=== PATIENT | female | born 1960 | race Caucasian/White ===

== ENCOUNTER 2018-09-18 22:29 | Emergency (ER) | payer BC, MEDICAID ==
[~2018-09-18] VITALS: Ht 152.4 cm; Wt 68.4 kg
[2018-09-18 22:33] VITALS: Ht 152.4 cm; Wt 68.4 kg
[2018-09-18] MEDS ORDERED: CEFEPIME 2GM/50 ML (PMX) 50 ML IVPB STA (22:38)
[2018-09-18] MEDS ORDERED: ACETAMINOPHEN 325 MG TAB PO STA (22:38)
[2018-09-18] MEDS ORDERED: KETOROLAC 30 MG INJ IV STA (22:38)
[2018-09-18] MEDS ORDERED: SODIUM CHLORIDE 0.9% 1L BAG IV* STA (22:38)
--- NOTE | 2018-09-18 22:53 | ERD ---
ER Documentation Chief Complaint Chief Complaint C/O LT JAW/THROAT PAIN AND SWELLING X1.5 WEEKS S/P DENTAL IMPLANT HPI 58-year-old female complaining of left sided neck pain anteriorly for the past 1.5 weeks status post having a dental implant placed. She recently finished a course of ampicillin. She has not discussed this pain with her primary dentist. However she came into the because for the past 3 days she has been experiencing some fevers as well as 5 days of left groin pain that is radiating to her left lower back. Denies any hematuria or dysuria. No nausea, vomiting, diarrhea ROS All systems reviewed and are negative except as per history of present illness. Medications Home Meds Active Scripts Amoxicillin/Potassium Clav (Amox-Clav 875-125 mg Tablet) 875-125 mg Tab, 1 TAB PO BID for 7 Days, #14 TAB Prov:KARLA BRAVO MD 09/19/18 Allergies Allergies: Coded Allergies: No Known Allergy (Unverified , 09/18/18) PMhx/Soc Medical and Surgical Hx: pt denies Medical Hx History of Surgery: No Hx Alcohol Use: No Hx Substance Use: No Hx Tobacco Use: No FmHx Family History: No diabetes Physical Exam Vitals Vital Signs Date Temp Pulse Resp B/P (MAP) Pulse Ox O2 O2 Flow FiO2 Time Delivery Rate 09/19/18 100.4 98 17 148/88 100 Room Air 00:00 (108) 09/18/18 102.2 113 23 161/81 100 22:33 (107) Physical Exam Const: No acute distress Head: Atraumatic Eyes: Normal Conjunctiva, PERRLA, EOMI ENT: Normal External Ears, Nose and Mouth. Teeth appear normal. No gum inflammation. Posterior oropharynx normal without erythema or exudate Neck: Full range of motion. No meningismus. No crepitus to palpation. No cervical lymphadenopathy Resp: Clear to auscultation bilaterally Cardio: Tachycardic with regular rhythm, no murmurs Abd: Soft, non tender, non distended. Normal bowel sounds. There is a left- sided groin tenderness to palpation Skin: No petechiae or rashes Back: No midline or flank tenderness Ext: No cyanosis, or edema Neur: Awake and alert Psych: Normal Mood and Affect Result Diagram: 09/18/18224809/18/182248 Results 24 hrs Laboratory Tests Test 09/18/18 22:48 09/18/18 22:49 POC Venous Lactate 1.4 mmol/L White Blood Count 11.0 10^3/ul Red Blood Count 4.44 10^6/ul Hemoglobin 13.0 g/dl Hematocrit 38.4 % Mean Corpuscular Volume 86.5 fl Mean Corpuscular Hemoglobin 29.3 pg Mean Corpuscular Hemoglobin Concent 33.9 g/dl Red Cell Distribution Width 11.6 % Platelet Count 288 10^3/UL Mean Platelet Volume 9.9 fl Immature Granulocytes % 0.400 % Neutrophils % 62.8 % Lymphocytes % 26.7 % Monocytes % 9.1 % Eosinophils % 0.6 % Basophils % 0.4 % Nucleated Red Blood Cells % 0.0 /100WBC Immature Granulocytes # 0.040 10^3/ul Neutrophils # 6.9 10^3/ul Lymphocytes # 2.9 10^3/ul Monocytes # 1.0 10^3/ul Eosinophils # 0.1 10^3/ul Basophils # 0.0 10^3/ul Nucleated Red Blood Cells # 0.0 10^3/ul Prothrombin Time 12.3 Sec Prothrombin Time Ratio 1.0 INR International Normalized Ratio 0.90 Activated Partial Thromboplast Time 29.3 Sec Urine Color COLORLESS Urine Clarity CLEAR Urine pH 6.0 Urine Specific [place] 1.004 Urine Ketones NEGATIVE mg/dL Urine Nitrite NEGATIVE mg/dL Urine Bilirubin NEGATIVE mg/dL Urine Urobilinogen NEGATIVE mg/dL Urine Leukocyte Esterase NEGATIVE Lelia/ul Urine Hemoglobin NEGATIVE mg/dL Urine Glucose NEGATIVE mg/dL Urine Total Protein NEGATIVE mg/dl Sodium Level 142 mmol/L Potassium Level 3.9 mmol/L Chloride Level 104 mmol/L Carbon Dioxide Level 25 mmol/L Anion Gap 13 Blood Urea Nitrogen 12 mg/dl Creatinine 0.61 mg/dl Est Glomerular Filtrat Rate mL/min > 60 mL/min Glucose Level 114 mg/dl Calcium Level 9.5 mg/dl Total Bilirubin 0.5 mg/dl Direct Bilirubin 0.00 mg/dl Indirect Bilirubin 0.5 mg/dl Aspartate Amino Transf (AST/SGOT) 20 IU/L Alanine Aminotransferase (ALT/SGPT) 15 IU/L Alkaline Phosphatase 79 IU/L Troponin I < 0.012 ng/ml Total Protein 8.3 g/dl Albumin 4.4 g/dl Globulin 3.90 g/dl Albumin/Globulin Ratio 1.12 Current Medications Medications Dose Sig/Luisana Start Time Status Last (Trade) Ordered Route PRN Stop Time Admin Dose Reason Admin Sodium 2,050 ml BOLUS OVER 2 09/18/18 DC 09/18/18 Chloride HOURS STAT 22:38 09/18/18 22:53 (NS) IV* 22:40 650 mg ONCE STAT 09/18/18 DC 09/18/18 Acetaminophen PO 22:38 09/18/18 22:54 (Tylenol 22:40 Tab) Cefepime HCl 50 ml @ ONCE STAT 09/18/18 DC 09/18/18 100 mls/hr IVPB 22:38 09/18/18 22:53 23:07 Vancomycin 250 ml @ ONCE ONCE 09/18/18 DC 09/18/18 HCl 125 mls/hr IVPB 23:00 09/19/18 23:43 00:30 Ketorolac 30 mg ONCE STAT 09/18/18 DC 09/18/18 Tromethamine IV 22:38 09/18/18 22:55 (Toradol) 22:40 Procedures/MDM EMERGENT LABS AND DIAGNOSTIC STUDIES: Lab Results above were reviewed and interpreted by me. CBC: no anemia or evidence of infection CMP: No evidence of clinically significant electrolyte abnormality, acidosis, renal failure, hypoglycemia, liver disease, or biliary obstruction Lactate within normal limits without evidence of sepsis or tissue hypoperfusion UA: no evidence of infection 12-lead EKG was interpreted by Reynold Bravo MD: Sinus tachycardia with ventricular rate of 112 beats per minute Normal axis Normal intervals No acute ST or T wave changes suggestive of acute ischemia or STEMI. Radiology Results as interpreted by Radiology below were reviewed by SChante Bravo MD: Chest x-ray shows no acute abnormalities Initial Nursing notes reviewed. Previous Medical Records requested via the Electronic Health Record. EMERGENCY DEPARTMENT COURSE / MEDICAL DECISION MAKING: Patient is presenting with acute fever and abnormal vital signs concerning for possible sepsis. However there are no clear signs of infection on exam. Broad- spectrum antibiotics and IV fluids given. Lactate was within normal limits without evidence of severe sepsis or septic shock. with regard to her dental pain, I have a low suspicion for dental abscess but cannot rule this out. There is no evidence of other intraoral or neck infections. With regard to her left groin pain, she has no abdominal tenderness on exam. I have a low suspicion for acute surgical abdomen. I explained to the patient the results of her work-up today. The source of her fever is unclear at this time. I recommended follow-up with her dentist tomorrow and will prescribe her antibiotics in the meantime in case she does have a dental abscess. I do not feel any imaging is necessary at this time but return precautions were given. Patient discharged in stable condition. Patient's blood pressure was elevated (>120/80) but appears stable without evidence of hypertensive emergency or urgency. The patient was counseled about the risks of hypertension and urged to pursue outpatient monitoring and therapy within a week with their primary care physician. Departure Diagnosis: Primary Impression: Acute febrile illness Additional Impressions: Left inguinal pain Neck pain on left side Condition: Stable EKKARLA COHEN MD Sep 18, 2018 22:53
[2018-09-18] MEDS ORDERED: VANCOMYCIN 1 GM (PMX) 250 ML IVPB ONE (23:00)
[2018-09-19] VITALS: BP 148/88; PULSE 98; RESP 17
[2018-09-19] MEDS ORDERED: AMOX1TAB10 PO (00:07)
== END 2018-09-19 00:30 | disposition home or self-care (01) ==
LOC: E/R 22:29
DX: M54.2 Cervicalgia (principal); R10.30 Lower abdominal pain, unspecified; R50.9 Fever, unspecified; R40.2142 Coma scale, eyes open, spontaneous, at arrival to emergency department; R40.2252 Coma scale, best verbal response, oriented, at arrival to emergency department; R40.2362 Coma scale, best motor response, obeys commands, at arrival to emergency department
CPT/HCPCS: 71045; 80053; 81003; 83605; 84484; 85025; 85610; 85730; 87040; 87086; 93005; 96374; 96375; J0692; J1885; J3370; J7030; Z7502; Z7610